=== PATIENT | male | born 1950 | race Two or more races ===

== ENCOUNTER 2024-10-26 08:02 | Outpatient (REF) | payer OTHER, SELFPAY ==
[2024-10-26 08:50] LABS: Hematocrit 42.8 % (42.0-52.0); Hemoglobin 14.1 g/dl (14.0-18.0); Mean Corpuscular HGB Conc 32.9 g/dl (31.0-36.0); Mean Corpuscular Hemoglobin 30.7 pg (27.0-33.0); Mean Corpuscular Volume 93.2 fL (80.0-98.0); NRBC Abs Auto 0.000 X10*3/uL (0.0-0.012); NRBC Pct Auto 0.0 /100WBC (0.0-0.2); Platelet Count 301 X10*3/uL (160-400); Red Blood Count 4.59 X10*6/uL (4.60-5.80); White Blood Count 8.2 X10*3/uL (4.8-10.8)
[2024-10-26 09:20] LABS: Hemoglobin A1C 224.0370 umol/L; Total Hemoglobin (HGBA1C) 3746.2439 umol/L
[2024-10-26 10:02] LABS: Microalbum/Creatinine Ratio Ur 45.3 ug/mg cr (<30)
[2024-10-26 10:10] LABS: Alanine Aminotransferase 21 U/L (0-40); Albumin Level 4.4 g/dL (3.5-5.0); Alkaline Phosphatase 68 U/L (39-117); Anion Gap 14 (12-20); Aspartate Amino Transferase 21 U/L (5-37); Blood Urea Nitrogen 21 mg/dL (9-16); Calcium 10.1 mg/dL (8.4-10.2); Carbon Dioxide 27 mmol/L (22-29); Chloride 106 mmol/L (96-108); Cholesterol 103 mg/dL (<200); Estimated Glomerular Filt Rate > 60; HDL Cholesterol 38 mg/dL (>40); Potassium 4.0 mmol/L (3.3-5.1); Sodium 143 mmol/L (135-145); Total Protein 6.6 g/dL (6.5-8.0); Triglycerides 135 mg/dL (<150)
[2024-10-26 11:40] LABS: Vitamin B12 189 pg/mL (200-900)
== END 2024-10-26 08:03 | disposition home or self-care (01) ==
LOC: HO.LAB 08:02
PROVIDERS: PCP Internal Medicine; Visit Provider Internal Medicine
DX: E11.9 Type 2 diabetes mellitus without complications (principal); D51.9 Vitamin B12 deficiency anemia, unspecified; E78.00 Pure hypercholesterolemia, unspecified; F32.9 Major depressive disorder, single episode, unspecified; I10 Essential (primary) hypertension; R63.4 Abnormal weight loss; Z86.73 Personal history of transient ischemic attack (TIA), and cerebral infarction without residual deficits
CPT/HCPCS: 36415; 80053; 80061; 82043; 82570; 82607; 83036; 85027

== ENCOUNTER 2024-11-12 07:49 | Outpatient (REF) | payer OTHER, SELFPAY ==
[2024-11-12 08:41] LABS: Hemoglobin A1C 235.3667 umol/L; Total Hemoglobin (HGBA1C) 3905.2966 umol/L
[2024-11-12 08:42] LABS: Appearance Urine Clear; Glucose Urine UA Negative (Negative); PH 5.5 (5.0-9.0); Specific Gravity - Urine 1.020 (1.005-1.025); UMIC TRIGGER UA YES
[2024-11-12 09:04] LABS: Alanine Aminotransferase 32 U/L (0-40); Albumin Level 4.8 g/dL (3.5-5.0); Alkaline Phosphatase 70 U/L (39-117); Anion Gap 13 (12-20); Aspartate Amino Transferase 23 U/L (5-37); Blood Urea Nitrogen 17 mg/dL (9-16); Calcium 10.1 mg/dL (8.4-10.2); Carbon Dioxide 28 mmol/L (22-29); Chloride 106 mmol/L (96-108); Estimated Glomerular Filt Rate > 60; Potassium 4.1 mmol/L (3.3-5.1); Sodium 143 mmol/L (135-145); Total Protein 7.2 g/dL (6.5-8.0)
== END 2024-11-12 07:50 | disposition home or self-care (01) ==
LOC: HO.LAB 07:49
PROVIDERS: Visit Provider Internal Medicine
DX: E11.9 Type 2 diabetes mellitus without complications (principal); E78.00 Pure hypercholesterolemia, unspecified; D51.1 Vitamin B12 deficiency anemia due to selective vitamin B12 malabsorption with proteinuria; F32.9 Major depressive disorder, single episode, unspecified; R26.81 Unsteadiness on feet; R32 Unspecified urinary incontinence; R35.0 Frequency of micturition; R63.4 Abnormal weight loss
CPT/HCPCS: 36415; 80053; 81001; 83036; 84153; 87086

== ENCOUNTER 2024-11-25 07:21 | Outpatient (REF) | payer OTHER, SELFPAY ==
--- NOTE | ~2024-11-25 | XR_ITS ---
EXAMINATION: XR KNEE 4 VIEWS BILATERAL HISTORY: OSTEOARTHRITIS BILATERAL KNEES COMPARISON: There are no prior studies available for comparison. FINDINGS: Standing AP views of both knees and 3 additional views of the bilateral knees are submitted. Osseous mineralization is normal. There is no fracture or dislocation. There is mild narrowing of the medial compartments of both knees. The soft tissues are unremarkable. There is no joint effusion. XR/XR Knee Luis Daniel 4V IMPRESSION: Mild narrowing of the medial compartments of both knees. Electronically signed by: Jared Adler MD 11/25/2024 08:03 AM EDT
== END 2024-11-25 07:22 | disposition home or self-care (01) ==
LOC: HO.XRAY 07:21
PROVIDERS: PCP Internal Medicine; Visit Provider Internal Medicine
DX: M17.0 Bilateral primary osteoarthritis of knee (principal)
CPT/HCPCS: 73564

== ENCOUNTER → 2024-11-25 07:27 | Outpatient (BNV) | payer OTHER, SELFPAY | PROVIDERS: PCP Internal Medicine; Visit Provider Radiology Diagnostic Radiology | DX: M17.0 Bilateral primary osteoarthritis of knee (principal) | CPT/HCPCS: 73564 ==

== ENCOUNTER 2025-02-17 09:19 | Outpatient (REF) | payer OTHER, SELFPAY ==
[2025-02-17 10:37] LABS: Alanine Aminotransferase 15 U/L (0-40); Albumin Level 4.5 g/dL (3.5-5.0); Alkaline Phosphatase 55 U/L (39-117); Anion Gap 9 (12-20); Aspartate Amino Transferase 19 U/L (5-37); Blood Urea Nitrogen 15 mg/dL (9-16); Calcium 9.7 mg/dL (8.4-10.2); Carbon Dioxide 31 mmol/L (22-29); Chloride 109 mmol/L (96-108); Estimated Glomerular Filt Rate > 60; Potassium 4.4 mmol/L (3.3-5.1); Sodium 145 mmol/L (135-145); Total Protein 7.0 g/dL (6.5-8.0)
[2025-02-23 13:53] LABS: Anti Nuclear Antibody Screen NEGATIVE (NEGATIVE)
== END 2025-02-17 09:20 | disposition home or self-care (01) ==
LOC: HO.LAB 09:19
PROVIDERS: PCP Internal Medicine; Visit Provider Internal Medicine
DX: E11.9 Type 2 diabetes mellitus without complications (principal); M22.2X1 Patellofemoral disorders, right knee; N40.1 Benign prostatic hyperplasia with lower urinary tract symptoms; R26.81 Unsteadiness on feet; R35.0 Frequency of micturition; Z12.5 Encounter for screening for malignant neoplasm of prostate; Z01.84 Encounter for antibody response examination
CPT/HCPCS: 36415; 80053; 83036; 84153; 85652; 86038; 86200; 86431

== ENCOUNTER 2025-02-24 10:47 | Outpatient (AMB) | payer OTHER, SELFPAY ==
--- NOTE | 2025-02-24 10:53 | A.OFFVIS_ITS ---
Vital Signs 02/24/25 10:58 Height 5 ft 6 in Weight 143 lb 4.807 oz BMI 23.1 BP 130/68 Blood Pressure Location Lt brachial Position Sitting Pulse 89 Pulse Source Monitor Intake Visit Reasons: [employer]DER/ Ameena referral 911 Emergency Dispatcher Required: Yes 911 Emergency Dispatcher Services: 911 Emergency Dispatcher Offered & Declined Accompanied by: Son Allergies No Known Allergies Allergy (Verified 02/24/25 11:09) Medication List - Last Reconciled 02/24/25 by Gregg Rosario MD cyanocobalamin (vitamin B-12) 1,000 mcg PO DAILY glipizide ER 5 mg PO DAILY insulin degludec (Tresiba FlexTouch U-100 insulin) 10 units subcut BEDTIME lisinopril 20 mg PO DAILY meloxicam 7.5 mg PO DAILY metformin 1,000 mg PO BID rosuvastatin 40 mg PO DAILY trazodone 100 mg PO BEDTIME HPI Comments Details: Jimbo has been referred to Cardiology for evaluation. It seems that he has relocated from [place]. Used to see Cardiology at [facility] [address]. He seems to have an implantable loop recorder in place. Seems he might have been put in for evaluation of atrial fibrillation as he has apparently had about 3 TIAs. Patient himself denies any prior history of any coronary disease or myocardial infarction or cardiomyopathy. Seems to be a chronic smoker. Within limits of his activity, he does not have any overt symptoms like angina [facility] Medical History (Updated 02/24/25 @ 11:56 by Gregg Rosario MD) Implantable loop recorder present TIA (transient ischemic attack) Hyperlipidemia, unspecified Primary hypertension Diabetes Surgical History (Updated 02/24/25 @ 11:14 by Rosaline Shipman) History of cholecystectomy Family History (Updated 02/24/25 @ 11:16 by Rosaline Shipman) Mother No problems noted. Father Heart problem Diabetes Social History (Updated 02/24/25 @ 11:16 by Rosaline Shipman) Alcohol intake: never Patient Tobacco Use Status: Current everyday Tobacco user Tobacco use type: Cigarette Cigarette Packs Per Day: 1 Years Smoked: 50 Review of Systems Const Denies weakness ENT Denies dizziness Card Denies chest pain, Denies chest pain with activity, Denies syncope, Denies rapid heart rate, Denies pedal edema, Denies edema, Denies leg edema, Denies lightheadedness, Reports palpitations, Reports dyspnea, Denies dyspnea on exertion and Denies orthopnea Resp Denies cough, Reports dyspnea and Denies dyspnea on exertion GI Denies hematochezia and Denies change in stool character Musc Denies abnormal gait, Reports joint swelling, Denies muscle cramps, Denies muscle weakness, Denies numbness, Denies radiating pain into limb and Denies tingling Neuro Denies abnormal gait, Denies dizziness, Denies syncope, Denies numbness, Denies tingling and Denies weakness Endo Reports palpitations Physical Exam Vital Signs: Last Vital Signs Pulse 89 02/24/25 10:58 BP 130/68 02/24/25 10:58 BMI result Body Mass Index 23.1 Const General: comfortable and no acute distress Orientation/consciousness: patient oriented x3 HEENT Other: Unremarkable Head: Yes normal to inspection Neck Neck: Yes normal visual inspection Chest Chest palpation & inspection: normal inspection of the chest Resp Auscultation: clear to auscultation bilaterally Cardio Palpation: normal PMI Heart sounds: S1 normal heart sound present, S2 normal heart sound present, no gallops, no murmurs and no rubs GI Palpation (GI): Soft to palpation Back/Spine/Pelvis Other: unremarkable Skin General skin exam: no rashes or lesions noted Neuro General: patient oriented x3 Extrem General: Yes normal to inspection Psych Mental Status: mental status grossly normal Office Procedures Cardiac Device Check Cardiac Device Check Details: Implantable loop recorder interrogated today. There was no evidence of atrial fibrillation. No episodes since June of this year. There were a few sec up possible atrial tachycardia prior to that. There was also another longer episode but thought to be artifactual. [id number] Device Interrogation, subcut cardiac rhythm monitor Procedure code (CPT) selection complete EKG Details: EKG with underlying sinus rhythm at 89/Min; no clear ischemic changes; [place]. [id number]-[id number], Complete Assessment & Plan Assessment & Plan (1) Implantable loop recorder present: Code(s): Z95.818 - Presence of other cardiac implants and grafts Category: Medical (2) TIA (transient ischemic attack): Code(s): G45.9 - Transient cerebral ischemic attack, unspecified Category: Medical (3) Type 2 diabetes mellitus with unspecified complications: Code(s): E11.8 - Type 2 diabetes mellitus with unspecified complications Category: Medical (4) Primary hypertension: Code(s): I10 - Essential (primary) hypertension Category: Medical (5) Hyperlipidemia, unspecified: Code(s): E78.5 - Hyperlipidemia, unspecified Category: Medical Plan Essentially, multiple cardiovascular risk factors, TIA episodes x3 per patient, implantable loop recorder in place, relocated from [place]. We will need to obtain records from [facility]. On today's interrogation, no evidence of any atrial fibrillation. We will set him up for remote monitoring. Otherwise, obtain echocardiogram for cardiac function assessment. We will follow up with records. Orders: Orders CA echo transthoracic complete Today I48.0 - Paroxysmal atrial fibrillation Coding Level of Care Code New Pt Level 4 (98663) Complex EM visit Add On G2211 Diagnoses Implantable loop recorder present Z95.818 TIA (transient ischemic attack) G45.9 Type 2 diabetes mellitus with unspecified complications E11.8 Primary hypertension I10 Hyperlipidemia, unspecified E78.5 CPT Codes Cardiac Device Check - Cardiac Device 11: [id number] Device Interrogation, subcut cardiac rhythm monitor ([id number]) EKG - CPT: 20786-[id number], Complete ([id number])
[2025-02-24 10:58] VITALS: BP 130/68; PULSE 89; BMI 23.1
== END 2025-02-24 11:45 | disposition home or self-care (01) ==
LOC: HO.HCS 10:47
PROVIDERS: PCP Internal Medicine; Visit Provider Internal Medicine
DX: G45.9 Transient cerebral ischemic attack, unspecified (principal); Z95.818 Presence of other cardiac implants and grafts; E11.8 Type 2 diabetes mellitus with unspecified complications; I10 Essential (primary) hypertension; E78.5 Hyperlipidemia, unspecified
CPT/HCPCS: 93010; 93291; 99204; G2211

== ENCOUNTER → 2025-02-24 10:47 | Outpatient (BNVA) | payer OTHER, SELFPAY | PROVIDERS: PCP Internal Medicine; Visit Provider Internal Medicine | DX: I10 Essential (primary) hypertension (principal); E11.8 Type 2 diabetes mellitus with unspecified complications; E78.5 Hyperlipidemia, unspecified; G45.9 Transient cerebral ischemic attack, unspecified; Z95.818 Presence of other cardiac implants and grafts | CPT/HCPCS: 93005; 99202 ==